=== PATIENT | male | born 1970 | race Caucasian/White ===

== ENCOUNTER 2022-12-30 16:18 | Emergency (ER) | payer BC, SELFPAY ==
[2022-12-30 16:59] VITALS: BP 141/85; PULSE 77; RESP 16; TEMP 36.8; O2SAT 98
--- NOTE | 2022-12-30 17:26 | ED.WOUNDLAC ---
HPI - Wound/Laceration General Chief Complaint: Wound/Laceration Stated Complaint: left finger irritation Time Seen by Provider: 12/30/22 17:27 Source: patient Mode of arrival: ambulatory Limitations: no limitations History of Present Illness HPI narrative: 52-year-old male presented for complaint of left index finger infection surrounding a splinter. He states he got a splinter about 4 days ago, and has made multiple attempts to remove it without success. Reports burning a needle and poking the site, applying pressure to the finger, and using Neosporin and wrapping it without any relief. Now site is swollen, red, and draining pus. Denies numbness, tingling, weakness, nausea, vomiting, fevers or chills. Related Data Home Medications Medication Instructions Recorded Confirmed Norvasc 12/30/22 Zetia 12/30/22 aspirin 81 mg chewable tablet 81 mg PO DAILY 12/30/22 12/30/22 hydrochlorothiazide 12/30/22 losartan 12/30/22 Allergies Allergy/AdvReac Type Severity Reaction Status Date / Time No Known Allergies Allergy Verified 12/30/22 17:17 Review of Systems Review of Systems: CONSTITUTIONAL: Denies body aches, fever, chills, or sweats. EYES: Denies visual changes, redness, or discharge. ENT: Denies rhinorrhea, congestion CARDIOVASCULAR: Denies chest pain, palpitations, or edema. RESPIRATORY: Denies cough or dyspnea. GASTROINTESTINAL: Denies abdominal pain, nausea, vomiting, or diarrhea. SKIN: per HPI MUSCULOSKELETAL: Denies back pain, joint pain, or myalgia. NEUROLOGIC: Denies headache, numbness, tingling, or weakness. [facility] Past Medical History Medical History (Updated 12/30/22 @ 18:10 by Bernadette Atkinson, [employer]) Hypertension Comments At time of signature, I have reviewed and agree with nursing past medical, surgical, social and family history unless otherwise noted. Please see nursing chart for further information. There is no relevant family history pertinent to the presenting complaint Exam Narrative: GENERAL: Well-appearing HEAD: Normocephalic, atraumatic. EYES: conjunctivae clear, and EOMI. ENT: Mucous membranes moist. Oropharynx without edema, erythema or lesions. NECK: Supple. No lymphadenopathy CHEST: Clear to auscultation. HEART: Regular rate and rhythm. SKIN: Warm, dry. Left 2nd digit proximal phalanx with mild swelling and abscess approx 0.5cm diameter and surrounding erythema of approx 2cm diameter, open and draining purulent discharge. Full ROM. Normal strength and sensation. NEURO: Alert and oriented x3. Course Course Emergency Course: Patient is aware of diagnosis, understands and agrees to treatment plan. Anticipatory guidance given. Patient agrees to follow-up as directed and is aware of reasons to seek care at the emergency department. Portions of this record may have been created with voice recognition software Level of Care: Express Care Visit Vital Signs Vital signs: Vital Signs Temperature 98.2 F 12/30/22 16:59 Pulse Rate 77 12/30/22 16:59 Respiratory Rate 16 12/30/22 16:59 Blood Pressure 141/85 H 12/30/22 16:59 Pulse Oximetry 98 12/30/22 16:59 Oxygen Delivery Room Air 12/30/22 16:59 Temperature 98.2 F 12/30/22 16:59 Pulse Rate 77 12/30/22 16:59 Respiratory Rate 16 12/30/22 16:59 Blood Pressure 141/85 H 12/30/22 16:59 Pulse Oximetry 98 12/30/22 16:59 Oxygen Delivery Room Air 12/30/22 16:59 Reviewed Procedures Abscess I/D left 2nd digit: Date of Incision: 12/30/22 Irrigation: Yes (skintegrity 25ml) Packing used?: none I&D Results: Pus Abcess I&D Additional Comments: The procedure and its alternatives were reviewed with patient. Risks were reviewed with patient including infection and damage to nearby structures. Patient provided verbal informed consent. The patient was positioned appropriately. Using existing open site at the area of fluctuance, the site was advanced
== END 2022-12-30 18:20 | disposition home or self-care (01) ==
PROVIDERS: Emergency Provider Nurse Practitioner Family
DX: L02.512 Cutaneous abscess of left hand (principal); S60.451A Superficial foreign body of left index finger, initial encounter; L08.9 Local infection of the skin and subcutaneous tissue, unspecified; W45.8XXA Other foreign body or object entering through skin, initial encounter; I10 Essential (primary) hypertension
CPT/HCPCS: 99213; G0463